=== PATIENT | female | born 2000 | race Caucasian/White ===

== ENCOUNTER 2019-03-18 09:20 | Emergency (ER) | payer OTHER ==
[~2019-03-18] VITALS: Ht 170.2 cm; Wt 60.0 kg
[2019-03-18 09:20] VITALS: BP 136/80
--- NOTE | 2019-03-18 09:47 | REP ---
Right foot series: Four views. History: Injury. Findings: Four views right foot demonstrate a obliquely oriented fracture through the proximal dye metaphyseal region of the third metatarsal. No other fractures seen. There is associated swelling. Impression: Nondisplaced oblique of the oriented fracture proximal third metatarsal. Electronically Signed by Morris Acuna MD 03/18/2019 09:39 A
== END 2019-03-18 10:29 | disposition home or self-care (01) ==
LOC: M ED 09:20
DX: S92.334A Nondisplaced fracture of third metatarsal bone, right foot, initial encounter for closed fracture (principal); W22.8XXA Striking against or struck by other objects, initial encounter; Y92.89 Other specified places as the place of occurrence of the external cause; Y99.1 Military activity